=== PATIENT | male | born 1960 | race Caucasian/White ===

== ENCOUNTER 2020-08-12 08:41 | Outpatient (CLI) | payer OTHER, SELFPAY ==
[2020-08-12 09:59] LABS: Cholesterol 185 mg/dL (0-200); HDL Direct 69 mg/dL; Triglycerides 84 mg/dL (<150)
[2020-08-12 10:10] LABS: LDL Cholesterol Direct 90 mg/dL
== END 2020-08-12 08:42 | disposition home or self-care (01) ==
LOC: ANHLAB 08:45
PROVIDERS: PCP Family Medicine; Visit Provider Physician Assistant
DX: E78.00 Pure hypercholesterolemia, unspecified (principal)
CPT/HCPCS: 36415; 80061

== ENCOUNTER → 2020-11-21 00:17 | Outpatient (CLI) | payer OTHER, SELFPAY ==
[2020-11-21 21:21] LABS: SARS-CoV-2 RNA PCR Negative
== END ==
PROVIDERS: PCP Family Medicine; Visit Provider Surgery
DX: Z01.812 Encounter for preprocedural laboratory examination (principal); Z20.822 Contact with and (suspected) exposure to COVID-19
CPT/HCPCS: C9803; U0003; U0005

== ENCOUNTER 2020-11-25 01:23 | Day surgery (SDC) | payer OTHER, SELFPAY ==
[2020-11-23 15:00] VITALS: BMI 28.7
[2020-11-25] VITALS (10 sets, daily range): BP systolic 103–141; BP diastolic 72–83; PULSE 63–74; RESP 10–20; TEMP 36.2–36.6; O2SAT 95–100
[2020-11-25] MEDS: LACTATED RINGERS 1,000 ML 30 ML IV CONT ×2 (12:05→15:00)
[2020-11-25] MEDS: ACETAMINOPHEN 500 MG TABLET 1000 MG PO (12:10)
[2020-11-25] MEDS: KETOROLAC 15 MG/ML VIAL (*BKC) IV PUSH (12:10)
[2020-11-25 12:46] LABS: Anion Gap 7 mmol/L (8-16); Blood Urea Nitrogen 17 mg/dL (9-20); Calcium 9.1 mg/dL (8.4-10.2); Carbon Dioxide 25 mmol/L (22-30); Chloride 105 mmol/L (98-107); Estimated CRCL calculation 87 ml/min; Estimated Glomerular Filt Rate > 60; Glucose 103 mg/dL (65-110); Potassium 4.2 mmol/L (3.4-5.0); Sodium 137 mmol/L (137-145)
--- NOTE | 2020-11-25 13:34 | WPDANESEPPF ---
Anes - Initial Pre Proc Eval Procedure: Operation Date: 11/25/20 13:15 Proposed Procedures p Rectal Exam Under Anesthesia, Possible Anal Fistulotomy - Alexander Fagan DO Date/Time: 11/25/20 13:34 Surgeon: Alexander Fagan DO Pre Op Diagnosis: hortencia-rectal abscess Patient Data Age: 60 Gender: M Height: 1.78 m Weight: 93 kg Last Vital Signs Temp 36.6 C 11/25/20 11:41 Pulse 74 11/25/20 11:41 Resp 18 11/25/20 11:41 BP 141/83 H 11/25/20 11:41 Pulse Ox 97 11/25/20 11:41 Allergies Allergy/AdvReac Type Severity Reaction Status Date / Time No Known Allergies Allergy Verified 11/25/20 12:18 Home Medications Medication Instructions Recorded Confirmed Type fluticasone propionate 50 1 spray NASAL DAILY #18.2 ml 08/13/20 11/25/20 Rx mcg/actuation nasal spray,suspension lisinopril 20 1 tablet PO DAILY #90 tablet 08/13/20 11/25/20 Rx mg-hydrochlorothiazide 12.5 mg tablet alprazolam 0.25 mg PO DAILY 11/23/20 11/25/20 History Laboratory Tests 11/25/20 12:08 Sodium 137 mmol/L mmol/L (137-145) Potassium 4.2 mmol/L mmol/L (3.4-5.0) Chloride 105 mmol/L mmol/L (98-107) Carbon Dioxide 25 mmol/L mmol/L (22-30) Anion Gap 7 mmol/L L mmol/L (8-16) BUN 17 mg/dL mg/dL (9-20) Creatinine 0.80 mg/dL mg/dL (0.7-1.3) Estim Creat Clear Calc 87 ml/min ml/min Estimated GFR > 60 (59 - ) Glucose 103 mg/dL mg/dL (65-110) Calcium 9.1 mg/dL mg/dL (8.4-10.2) Patient hx anesthesia problems: none Family hx anesthesia problems: none PMFSH Past Medical History Medical History Benign essential HTN KHADRA (generalized anxiety disorder) Perforation of colon as colonoscopy complication Peritonitis Prostate CA Surgical History Surgical History History of appendectomy History of colon resection Family History Family History Other No pertinent family history Social History Social History Social History: Smoking status: Never smoker Smokeless tobacco user: chewing tobacco Second hand tobacco smoke exposure: No Alcohol intake: current Drinks per week: 3 Alcohol use details: socially Substance use: never Substance use type: does not use Living arrangements: with family Additional occupation/education comments: Construction Gender identity (if verbalized by the patient): Male Spiritual care concerns: No Anes - Eval Final PreProcedure Day of Procedure 11/25/20 13:34 Patient weight: overweight Heart: regular rate and rhythm Lungs: clear to auscultation Airway: Mallampati scale class II Neurological: alert and oriented Last oral intake: >/= 8 hours ASA classification: III Emergent: no Anesthetic plan: proceed Anesthesia type and monitoring: general LMA and standard monitoring Informed Consent: The patient's anesthetic plan and its attendant risks and benefits were discussed with the patient/family/POA. Questions were solicited and answers provided to the satisfaction of the patient/family/POA.
--- NOTE | 2020-11-25 13:38 | WPDHPUPDATE1 ---
History and Physical Update Update Date/Time: 11/25/20 13:38 History and Physical has been reviewed, including an updated exam of the patient. There are NO changes in the patient's condition. Risks, benefits, and alternatives have been discussed and questions answered. Patient agrees to proceed with procedure.
--- NOTE | 2020-11-25 13:38 | PM.IMHP ---
H&P: HPI History of Present Illness Date/Time: 11/25/20 13:38 Chief Complaint: anal fistula Narrative: this is a 60 yo man who presents with an anal fistula. He presents for rectal EUA with possible fistulotomy. Review of Systems Review of Systems: All systems reviewed & are unremarkable except as noted in HPI and below Constitutional: Constitutional: Denies chills, Denies fever(s), Denies headache(s) and Denies weight loss Eyes: Eyes: Denies change in vision ENT: Denies dizziness, Denies headache(s), Denies neck mass and Denies throat swelling Cardiovascular: Cardiovascular: Denies chest pain, Denies lightheadedness and Denies dyspnea Respiratory: Respiratory: Denies cough, Denies dyspnea and Denies wheezing Gastrointestinal: Gastrointestinal: Denies abdominal pain, Denies change in bowel habits, Denies nausea and Denies vomiting Genitourinary: Genitourinary: Denies hematuria and Denies dysuria Musculoskeletal: Musculoskeletal: Reports as per HPI Integumentary/Breasts: Skin/Breast: Reports as per HPI Neurologic: Denies dizziness and Denies headache(s) Allergic/Immunologic: Allergic/Immunologic: Denies throat swelling and Denies wheezing PMFSH Past Medical History Medical History Benign essential HTN KHADRA (generalized anxiety disorder) Perforation of colon as colonoscopy complication Peritonitis Prostate CA Surgical History Surgical History History of appendectomy History of colon resection Family History Family History Other No pertinent family history Social History Social History Social History: Smoking status: Never smoker Smokeless tobacco user: chewing tobacco Second hand tobacco smoke exposure: No Alcohol intake: current Drinks per week: 3 Alcohol use details: socially Substance use: never Substance use type: does not use Living arrangements: with family Additional occupation/education comments: Construction Gender identity (if verbalized by the patient): Male Spiritual care concerns: No Meds Home Medications and Allergies Home Medications Medication Instructions Recorded Confirmed Type fluticasone propionate 50 1 spray NASAL DAILY #18.2 ml 08/13/20 11/25/20 Rx mcg/actuation nasal spray,suspension lisinopril 20 1 tablet PO DAILY #90 tablet 08/13/20 11/25/20 Rx mg-hydrochlorothiazide 12.5 mg tablet alprazolam 0.25 mg PO DAILY 11/23/20 11/25/20 History Allergies Allergy/AdvReac Type Severity Reaction Status Date / Time No Known Allergies Allergy Verified 11/25/20 12:18 Vital Signs Vital Signs - 24 hr 11/25/20 11:41 Temperature 36.6 C Pulse Rate 74 Respiratory Rate 18 Blood Pressure 141/83 H Pulse Oximetry 97 Exam Const: General: no acute distress and alert Orientation/consciousness: patient oriented x3 HENMT: Head: normocephalic and atraumatic Ears: hearing grossly normal bilaterally General nose exam: Normal nares present Mouth: Yes Normal oral and palatal mucosa present Eyes: Periorbital: periorbital findings normal Sclera: sclerae normal EOM: EOMs intact bilaterally Neck: Neck: normal visual inspection, no lymphadenopathy and trachea midline Chest: Chest palpation & inspection: normal inspection of the chest Resp: Effort & Inspection: normal respiratory effort Auscultation: clear to auscultation bilaterally Cardio: Jugular venous distension: no JVD Rate: regular rate Rhythm: regular rhythm Heart sounds: S1 normal heart sound present and S2 normal heart sound present Peripheral pulses: Peripheral pulses 2+ throughout GI: Inspection: normal to inspection GI Palp: Yes Soft to palpation, No Tenderness to palpation present (GI), No Guarding due to palpation pr
[2020-11-25] MEDS: ceFAZolin 2 GM/D5W 50 ML 2 GM/50 ML BAG IVPB (13:41)
--- NOTE | 2020-11-25 14:48 | W.PM.PROC2 ---
Procedure Note - Detailed Date of Procedure 11/25/20 Pre-op Diagnosis Anal fistula, perirectal abscess Post-op Diagnosis same (Trans-sphincteric anal fistula) Procedure Performed 1. Rectal exam under anesthesia 2. Placement of draining Seton 3. Incision and drainage of perirectal abscess Surgeon Alexander Fagan, Anesthesia general and local (Exparel) Indications This is a 60-year-old man who presented with recurrent perirectal abscesses over the past 3 months. He initially presented as a lump in the perianal region that eventually opened and drained on its own. He was placed on antibiotics and drainage seemed to improve. About a month later he had a recurrent episode and was found to have a chronic wound opening in the same location. Discussions were made with the patient that he likely had an anal fistula. Discussions were made with the patient about treatment options and decision was made to proceed with rectal exam under anesthesia with possible anal fistulotomy. Findings Rectal exam under anesthesia was performed. On perianal exam, there appeared to be a chronic small punctate wound opening in the right anterior location about 4 cm from the anal verge. A Hill-Delgado anoscope was inserted and the anal rectal canal was carefully inspected. There appeared to be a right anterior hemorrhoid bundle that was slightly engorged but there did not appear to be any signs of bleeding or thrombosis. No other internal abnormalities were noted initially. The lacrimal probes were then used to carefully probed the wound opening on the skin surface and this was found to be a deep transsphincteric anal fistula that entered into the anal canal in the anterior midline. Due to the significant amount of sphincter muscle fibers that this was involving, I did not feel comfortable performing a sphincterotomy. A draining seton was placed with a red vessel loop. I also probed the wound opening on the perianal skin and this appeared to track anteriorly towards the base of the scrotum as well. I opened the abscess tracked about 2 cm to allow for better drainage. No specimens were obtained for pathology. Description of Procedure Procedure as well as risks, benefits, and alternatives were discussed with the patient. Written consent was obtained and placed in chart prior to procedure. Patient was brought back to surgical suite. He was placed supine on operating table. Time-out was done to confirm patient and procedure. General anesthesia was then administered by the Anesthesia Department. He was repositioned into lithotomy position and stirrups. His perirectal area was prepped and draped in sterile fashion using Betadine prep. A careful perianal exam was initially performed followed by digital rectal exam. The wound opening was identified in the right anterior perianal skin about 4 cm from the anal verge. A Hill-Delgado anoscope was inserted in the anal rectal canal was carefully inspected. The lacrimal probes were then advanced into the wound opening on the skin and the location of tracking was carefully identified. The probe was tracked all the way down towards the anterior midline anal canal. The internal opening was identified within the anterior midline. This appeared to encompass a significant amount of the patient's sphincter muscle fibers. Sphincterotomy was not performed, and decision was made to place a draining seton instead. An 0 silk tie was tied around the lacrimal probe tip and this was then brought through the fistula tract. I then tied the red vessel loop to the 0 silk suture and brought the low vessel loop back through the fistula tract. The vessel loop was then tied in place with several 0 silk ties and this was kept loose to allow for continued drainage. I then also probed the wound for any other tracking and this also appeared to track anteriorly underneath the skin towards the base of the scrotum. This tracked about 4-5 cm anteriorly, but
--- NOTE | 2020-11-25 16:43 | SUR.PHASEII ---
[id number] - dr. lang in room talking with pt and pt's family at length in regards to procedure.
== END 2020-11-25 16:18 | disposition home or self-care (01) ==
PROVIDERS: Anesthesiology; PCP Family Medicine; Visit Provider Surgery
PROC: (CPT 46060; principal; 2020-11-25 13:15)
DX: K61.1 Rectal abscess (principal); I10 Essential (primary) hypertension; F41.1 Generalized anxiety disorder; Z85.46 Personal history of malignant neoplasm of prostate; F17.220 Nicotine dependence, chewing tobacco, uncomplicated
CPT/HCPCS: 46060; 36415; 80048; A9270; C9290; C9803; J0690; J1100; J1885; J2250; J2370; J2405; J2704; J3010; J7120; U0003; U0005

== ENCOUNTER 2024-06-10 10:22 | Outpatient (CLI) | payer OTHER, SELFPAY ==
--- NOTE | ~2024-06-10 | XR_ITS ---
Clinical Indication: Cough PA and lateral views of the chest: Comparison: None Findings: The lungs are clear, without evidence of focal consolidation or pleural effusion. Cardiome diastinal silhouette is within normal limits. Bones and soft tissues are unremarkable. Impression: Normal chest. Reviewed, dictated and finalized at location . ATRICIAN/MEDICAL DOCTOR Impression: Normal chest.
--- OUTSIDE RECORDS SUMMARY | 2024-06-10 11:43 | XMS_ITS | Referral Summary ---
Author Organization [facility] Address [facility] [place] [address] Care Team Providers Care Supervisor Gluing Name Role Phone Bruna Fagan DO Unavailable [phone] Sakshi Hernandez MD Primary Care Provider Chicho Vanessa MD Unavailable [phone] Allergies No known active allergies Medications lisinopril-hydr oCHLOROthiazide (PRINZIDE,ZESTO RETIC) 20-12.5 mg per tablet Take one by mouth one time per day 30 1 8 Active fluticasone propionate (FLONASE) 50 mcg/actuation nasal spray 2 sprays as needed Active azelastine (ASTELIN) 137 mcg (0.1 %) nasal spray Administer 2 sprays into each nostril daily Use in each nostril as directed Active Active Problems Problem Noted Date Diagnosed Date IBD (inflammatory bowel disease) 02/18/2021 Anal fistula 01/26/2021 Overview (01/26/2021): Added automatically from request for surgery [id number] Diastasis of rectus abdominis 08/08/2016 Overview (09/09/2016): Diastasis recti Abnormal glucose tolerance test (GTT) 08/31/2013 Overview (07/21/2016): IMPAIRED ORAL GLUCSE DAVIN Benign hypertension 08/31/2013 Overview (07/21/2016): BENIGN HYPERTENSION Social History Tobacco Use Types Packs/Day Years Used Date Smoking Tobacco: Former Alcohol Use Standard Drinks/Week Comments Yes 0 (1 standard drink = 0.6 oz pur e alcohol) AUDIT-C Answer Date Recorded Q1: How often do you have a drink containing alcohol? 4 or more times a week 02/19/2021 Q2: How many drinks containi ng alcohol do you have on a typical day when you are drinking? 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 Gender Identity Male 01/01/2021 9:44 AM CDT Sexual Orientation Straight 01/01/2021 9: 44 AM CDT Last Filed Vital Signs Vital Sign Reading Time Taken Comments Blood Pressure 162/85 04/13/2021 11:06 AM AUTOMOTIVE TIRE WORKER Pulse 94 04/13/2021 11:06 AM AUTOMOTIVE TIRE WORKER Temperature 36.2 C (97.2 F) 04/13/2021 11:06 AM AUTOMOTIVE TIRE WORKER Respiratory Rate 24 02/19/2021 9:53 AM CDT Oxygen Saturation 97% 02/19/2021 9:53 AM CDT Inhaled Oxygen Concentration - - Weight 94.2 kg (207 lb 9.6 oz) 04/13/2021 11:06 AM AUTOMOTIVE TIRE WORKER Height 180.3 cm (5' 11 ) 02/19/2021 8:32 AM CDT Body Mass Index 28.95 02/19/2021 8:32 AM CDT Plan of Treatment Not on file Insurance [employer] S[employer]ATURE [facility] CMR Advance Directives For more information, please contact: [phone] * Full Code (Latest Code Status on File) Date Activated Date Inactivated Comments 02/19/2021 8:27 AM 02/19/2021 2:40 PM Care Teams Supervisor Gluing Relationship Specialty Start Date End Date Sakshi Hernandez MD [address] [place] [address] PCP - General Family Medicine 12/03/20 Bruna Fagan DO [address] [place] [address] Referring Physician Surgery 12/01/20 Chicho Vanessa MD [phone] [place] [address] Surgeon Colon and Rectal Surgery 01/01/21"
--- OUTSIDE RECORDS SUMMARY | 2024-06-10 11:43 | XMS_ITS | Clinical Summary ---
Author Organization [facility] Address [facility] license of [facility] [place] [address] Care Team Providers Care Rn Care Transition Name Role Phone Bruna Fagan DO Unavailable [phone] Sakshi Hernandez MD Primary Care Provider Chicho Vanessa MD Unavailable [phone] Allergies No known active allergies Medications [...] (01/26/2021): Added automatically from request for surgery [id number] Diastasis of rectus abdominis 08/08/2016 Overview (09/09/2016): Diastasis recti Abnormal glucose tolerance test (GTT) 08/31/2013 Overview (07/21/2016): IMPAIRED ORAL GLUCSE DAVIN Benign hypertension 08/31/2013 Overview (07/21/2016): BENIGN HYPERTENSION Surgical History Surgery Date Site/Laterality Comments COLONOSCOPY Medical History Medical History Date Comments Hx Other Medical e.d. 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 Gender Identity Male 01/01/2021 9:44 AM CDT Sexual Orientation Straight 01/01/2021 9: 44 AM CDT Obstetrics History Last Filed Vital Signs Vital Sign Reading Time Taken Comments Blood Pressure 162/85 04/13/2021 11:06 AM GAS APPLIANCE SERVICER Pulse 94 04/13/2021 11:06 AM GAS APPLIANCE SERVICER Temperature 36.2 C (97.2 F) 04/13/2021 11:06 AM GAS APPLIANCE SERVICER Respiratory Rate 24 02/19/2021 9:53 AM CDT Oxygen Saturation 97% 02/19/2021 9:53 AM CDT Inhaled Oxygen Concentration - - Weight 94.2 kg (207 lb 9.6 oz) 04/13/2021 11:06 AM GAS APPLIANCE SERVICER Height 180.3 cm (5' 11 ) 02/19/2021 8:32 AM CDT Body Mass Index 28.95 02/19/2021 8:32 AM CDT Plan of Treatment Not on file Insurance [employer] SIGNATURE [facility] [place] [id number] [facility] Advance Directives For more information, please contact: [phone] * Full Code (Latest Code Status on File) Date Activated Date Inactivated Comments 02/19/2021 8:27 AM 02/19/2021 2:40 PM Care Teams Rn Care Transition Relationship Specialty Start Date End Date Sakshi Hernandez MD [address] [place] [address] PCP - General Family Medicine 12/03/20 Bruna Fagan DO [address] [place] [address] Referring Physician Surgery 12/01/20 Chicho Vanessa MD [phone] [place] [address] Surgeon Colon and Rectal Surgery 01/01/21
--- OUTSIDE RECORDS SUMMARY | 2024-06-10 11:44 | XMS_ITS | Clinical Summary ---
Author Organization [facility] Address [address] [place] [address] Phone Care Team Providers Care Disulfurizer Tender Name Role Phone Wili Ling MD Primary Care Provider [phone] Allergies No known active allergies Medications lisinopril-hydroc hlorothiazide (ZESTORETIC) 20-12.5 mg tablet Take 1 Tab by mouth daily. Active fluticasone (FLONASE) 50 mcg/spray [place], Suspension Administer 2 Sprays in each nostril daily. Active tobramycin-dexame thasone (TOBRADEX) 0.3-0.1 % suspension 1 Drop every 4 hours. Active Lactobacillis acidophillis/para casei, bifidobacterium, Streptococcus thermophilus (DEVON-Q) 8 billion cell capsule Take 1 Cap by mouth daily. Active vitamin B complex-vitamin C-folic acid (NEPHROCAP) 1 mg Capsule Take 1 Cap by mouth daily. Active Active Problems Problem Noted Date Diagnosed Date Colon polyps 01/20/2011 Ulcerative colitis 01/20/2011 Colitis 01/20/2011 Gastrointestinal problem Overview (03/01/2011): Procedures EGD, 01/20/11, [facility] Colonoscopy, 01/20/11, [facility] Family History Medical History Relation Name Comments Colon Cancer Brother Colon Polyps Brother Relation Name Status Comments Brother Social History Tobacco Use Types Packs/Day Years Used Date Smoking Tobacco: Never Smokeless Tobacco: Never Alcohol Use Standard Drinks/Week Comments Yes 0 (1 standard drink = 0.6 oz pur e alcohol) occ Sex and Gender Information Value Date Recorded Sex Assigned at Not on file Legal Sex Male 4:38 AM ASBESTOS SURVEYOR Gender Identity Not on file Sexual Orientation Not on file Last Filed Vital Signs Vital Sign Reading Time Taken Comments Blood Pressure 99/70 04/30/2014 9:14 AM ASBESTOS SURVEYOR Pulse 72 03/18/2014 2:58 PM ASBESTOS SURVEYOR Temperature 36.1 C (97 F) 04/30/2014 8:47 AM ASBESTOS SURVEYOR Respiratory Rate 16 04/30/2014 9:14 AM ASBESTOS SURVEYOR Oxygen Saturation 96% 04/30/2014 9:14 AM ASBESTOS SURVEYOR Inhaled Oxygen Concentration - - Weight 88.1 kg (194 lb 3.2 oz) 04/30/2014 7:27 A M ASBESTOS SURVEYOR Height 180.3 cm (5' 11 ) 04/30/2014 7:27 AM ASBESTOS SURVEYOR Body Mass Index 27.09 04/30/2014 7:27 AM ASBESTOS SURVEYOR Plan of Treatment Health Maintenance Due Date Last Done Comments DTAP/TDAP/TD VACCINES (1 - Tdap) 07/19/1978 FIT-DNA Q 3 years 07/19/2004 FIT/FOBT Q 1 year 07/19/2004 Flex Sig/CT Colonography Q 5 years 07/19/2004 ZOSTER VACCINE (1 of 2) 07/19/2009 COLORECTAL SCREENING 10/28/2014 04/30/2014, 09/07/2011, 09/07/2011 Colorectal Cancer Screening 10/28/2014 INFLUENZA VACCINE (#1) 2023 RSV VACCINE (60+ or ) (1 - 1-dose 75+ series) 07/19/2034 Procedures Procedure Name Priority Date/Time Associated Diagnosis Comments ENDOSCOPY, COLON, SCREENING Routine 09/07/2011 from Last 3 Months or Most Recently Relevant to Health Maintenance Results * (ABNORMAL) ENDOSCOPY, COLON, SCREENING (09/07/2011) us Brody Meyers MD GI PROCEDURE ORDERABLES [facility] from Last 3 Months or Most Recently Relevant to Health Maintenance Advance Directives For more information, please contact: [phone] * Full Code (Latest Code Status on File) Date Activated Date Inactivated Comments 04/30/2014 7:26 AM 04/30/2014 11:32 AM Care Teams Disulfurizer Tender Relationship Specialty Start Date End Date Wili Ling MD [address] [facility] [address] [place] [address] PCP - General Interventional Cardiology 02/15/11
--- OUTSIDE RECORDS SUMMARY | 2024-06-10 11:44 | XMS_ITS | Referral Summary ---
Author Organization [facility] Address [address] [address] Care Team Providers Care Washing Machine Loader And Puller Name Role Phone Wili Ling MD Primary Care Provider [phone] Source Comments [facility],non-owned Affiliates and Associated Physician Practices is amultiple site organization consisting of ambulatory clinics and hospital sitesin [place], [place], [place] and [place]. This disclosure is being madepursuant to the Care Everywhere program and may not contain all information available regarding this patient. Last updated 18.[facility] Allergies No known active allergies Medications * Be aware that medications may not be up to date on this document. Alwaysverify current medications with the patient. Medication Sig Dispensed Refills Start Date End Date Status oxycodone-acetaminop hen (PERCOCET) 7.5-325 MG tablet Take 1 Tab by mouth every 6 hours as needed for Pain. 30 Tab 0 05/23/2011 Active naproxen (NAPROSYN) 500 MG tablet Take 1 Tab by mouth 2 times daily as needed for Pain. 20 Tab 0 05/23/2011 Active lisinopril-hydroCHLO ROthiazide (PRINZIDE; ZESTORETIC) 20-12.5 MG tablet Take 1 tablet by mouth Active fluticasone propionate (FLONASE) 50 MCG/ACT nasal spray 2 sprays Active famotidine (PEPCID) 20 MG tablet Take 1 tablet by mouth 3 times daily as needed for Heartburn 90 tablet 01/23/2018 Active Active Problems Problem Noted Date Diagnosed Date Gastrointestinal problem 01/23/2018 Overview (01/23/2018): Overview: Formatting of this note may be different from the original. Procedures EGD, 01/20/11, [facility] Colonoscopy, 01/20/11, [facility] Colitis 01/20/2011 Colon polyps 01/20/2011 Ulcerative colitis 01/20/2011 Immunizations Name Administration Dates Next Due TDAP (7yrs+) 05/06/2020 Social History Tobacco Use Types Packs/Day Years Used Date Smoking Tobacco: Never Sex and Gender Information Value Date Recorded Sex Assigned at Not on file Gender Identity Not on file Sexual Orientation Not on file Last Filed Vital Signs Vital Sign Reading Time Taken Comments Blood Pressure 114/70 01/23/2018 2:47 PM CDT Pulse 93 01/23/2018 2:47 PM CDT Temperature 36.3 C (97.4 F) 05/23/2011 8:18 AM ATTENDANT SALES Respiratory Rate 16 05/23/2011 11:35 AM ATTENDANT SALES Oxygen Saturation 97% 05/23/2011 11:35 AM ATTENDANT SALES Inhaled Oxygen Concentration - - Weight 90.3 kg (199 lb) 01/23/2018 2:47 PM CDT Height 177.8 cm (5' 10 ) 01/23/2018 2:47 PM CDT Body Mass Index 28.55 01/23/2018 2:47 PM CDT Plan of Treatment Not on file Care Teams Washing Machine Loader And Puller Relationship Specialty Start Date End Date Wili Ling MD [address] [place] [address] PCP - General 05/23/11
--- OUTSIDE RECORDS SUMMARY | 2024-06-10 11:44 | XMS_ITS | Clinical Summary ---
Author Organization [facility] Address [address] [place] [address] Care Team Providers Care Coal Digger Name Role Phone Wili Ling MD Primary Care Provider [phone] Source Comments [facility],non-owned Affiliates and Associated Physician Practices is amultiple site organization consisting of ambulatory clinics and hospital sitesin [place], [place], [place] and [place]. This disclosure is being madepursuant to the Care Everywhere program and may not contain all information available regarding this patient. Last updated 18.[facility] Allergies No known active allergies Medications * [...] Administration Dates Next Due TDAP (7yrs+) 05/06/2020 Family History Medical History Relation Name Comments Diabetes Mother Relation Name Status Comments Mother Social History Tobacco Use Types Packs/Day Years [...] 36.3 C (97.4 F) 05/23/2011 8:18 AM SOFTWARE VERIFICATION ENGINEER Respiratory Rate 16 05/23/2011 11:35 AM SOFTWARE VERIFICATION ENGINEER Oxygen Saturation 97% 05/23/2011 11:35 AM SOFTWARE VERIFICATION ENGINEER Inhaled Oxygen Concentration - - Weight 90.3 kg (199 lb) 01/23/2018 2:47 PM CDT Height 177.8 cm (5' 10 ) 01/23/2018 2:47 PM CDT Body Mass Index 28.55 01/23/2018 2:47 PM CDT Plan of Treatment Health Maintenance Due Date Last Done Comments COLOGUARD (AGES 45-75) - COL ON CA SCREENING 1959 COLON MONITORING 1959 COLONOSCOPY - COLON CA SCREENING 1959 CT COLONOGRAPHY - COLON CA SCREENING 1959 Colorectal Cancer Screening 1959 FIT - COLON CA SCREENING 1959 FLEX SIG - COLON CA SCREENING 1959 LIPID TESTING 1959 HIV SCREENING 07/19/1974 HEPATITIS C SCREENING 07/15/1977 PNEUMOCOCCAL VACCINE 50+ (1 of 1 - PCV) 07/19/2009 ZOSTER VACCINE (1 of 2) 07/19/2009 COVID-19 VACCINE ( - 2023-2 5 season) 2023 INFLUENZA VACCINE (#1) 2023 DEPRESSION SCREENING 04/17/2024 DTAP/TDAP/TD VACCINES (2 - T d or Tdap) 05/06/2030 05/06/2020 Respiratory Syncytial Virus (RSV) Vaccine Pt: or over 60 yrs (1 - 1-dose 75+ series) 07/19/2034 HEPATITIS B VACCINE Aged Out No longe r eligible based on patient's age to complete this topic HIB VACCINE Aged Out No longer eligi ble based on patient's age to complete this topic HPV VACCINE Aged Out No longer eligi ble based on patient's age to complete this topic MENINGOCOCCAL (Group B) VACCINE Aged Out No longer eligible based on patient's age to complete this topic MENINGOCOCCAL VACCINE Aged Out No douglas tamara eligible based on patient's age to complete this topic PNEUMOCOCCAL VACCINE Aged Out No long er eligible based on patient's age to complete this topic Care Teams Coal Digger Relationship Specialty Start Date End Date Wili Ling MD [address] [place] [address] PCP - General 05/23/11
--- OUTSIDE RECORDS SUMMARY | 2024-06-10 11:44 | XMS_ITS | Patient Health Summary ---
Author Organization [facility] [address] Address [address] [place] [address] Care Team Providers Care Real Estate Office Supervisor Name Role Phone Wili Ling MD Primary Care Provider [phone] Note from [facility],non-owned Affiliates and Associated Physician Practices is amultiple site organization consisting of ambulatory clinics and hospital sitesin [place], [place], [place] and [place]. This disclosure is being madepursuant to the Care Everywhere program and may not contain all information available regarding this patient. Last updated 18.[facility] [address] Allergies No known active allergies Medications * Be aware that medications may not be up to date on this document. Alwaysverify current medications with the patient. * oxycodone-acetaminophen (PERCOCET) 7.5-325 MG tablet(Started 05/23/2011) Take 1 Tab by mouth every 6 hours as needed for Pain. * naproxen (NAPROSYN) 500 MG tablet(Started 05/23/2011) Take 1 Tab by mouth 2 times daily as needed for Pain. * lisinopril-hydroCHLOROthiazide (PRINZIDE; ZESTORETIC) 20-12.5 MG tablet Take 1 tablet by mouth * fluticasone propionate (FLONASE) 50 MCG/ACT nasal spray 2 sprays * famotidine (PEPCID) 20 MG tablet(Started 01/23/2018) Take 1 tablet by mouth 3 times daily as needed for Heartburn Active Problems Problem Noted Date Diagnosed Date Gastrointestinal problem 01/23/2018 Colitis 01/20/2011 Colon polyps 01/20/2011 Ulcerative colitis 01/20/2011 Immunizations * TDAP (7yrs+)(Given 05/06/2020) Social History Tobacco Use Types Packs/Day Years [...] 36.3 C (97.4 F) 05/23/2011 8:18 AM PIGMENT PUMPER Respiratory Rate 16 05/23/2011 11:35 AM PIGMENT PUMPER Oxygen Saturation 97% 05/23/2011 11:35 AM PIGMENT PUMPER Inhaled Oxygen Concentration - - Weight 90.3 kg (199 lb) 01/23/2018 2:47 PM CDT Height 177.8 cm (5' 10 ) 01/23/2018 2:47 PM CDT Body Mass Index 28.55 01/23/2018 2:47 PM CDT Procedures * CBC W AUTO DIFFERENTIAL(Performed 05/23/2011) * COMPREHENSIVE METABOLIC PANEL(Performed 05/23/2011) * URINALYSIS REFLEX TO MICROSCOPIC NO CULTURE(Performed 05/23/2011) * CT ABDOMEN PELVIS WO CONTRAST(Performed 05/23/2011) Performed for Back pain, Right flank pain Results * (ABNORMAL) CBC W AUTO DIFFERENTIAL (05/23/2011 10:00 AM PIGMENT PUMPER) WBC 4.5 4.2 - 10.2 K/CUMM [facility] RBC 4.22 4.10 - 5.70 M/CUMM [facility] Hemoglobin 13.4 12.6 - 17.4 gm/dl [facility] Hematocrit 38.5 37 - 52 % [facility] MCV 91.2 80 - 99 fl [facility] MCH 31.8 27.5 - 33.1 pg [facility] MCHC 34.8 32 - 36 gm/dl [facility] RDW 12.5 11.5 - 14.5 % [facility] Platelet Count 183 150 - 400 K/CUMM [facility] Granulocytes % 50.9 45 - 73 % [facility] Lymphocytes % 28.6 22 - 41 % [facility] Monocytes % 8.9 2 - 13 % [facility] Eosinophils % 11.4(H) 0 - 6 % [facility] Basophils % 0.2 0 - 2 % [facility] Granulocytes Absolute 2.3 1.7 - 7.7 [facility] Lymphocytes Absolute 1.3 1.0 - 3.0 [facility] Monocytes Absolute 0.4 0.2 - 1.0 [facility] Eosinophils Absolute 0.5(H) 0.0 - 0.4 [facility] Basophils Absolute 0.0 0.0 - 0.1 [facility] Comment Manual Diff Automated Diff Performed [facility] Blood specimen (specimen) BLOOD SPECIMEN / Unknown 05/23/2011 10:00 AM PIGMENT PUMPER 05/23/2011 10:10 AM PIGMENT PUMPER Ming Pacheco MD LAB - HEMATOL OGY ORDERABLES [facility] [address] [place] [address] * (ABNORMAL) COMPREHENSIVE METABOLIC PANEL (05/23/2011 10:00 AM PIGMENT PUMPER) Glucose 103 70 - 110 mg/dL [facility] BUN 17 7.0 - 21.0 mg/dL [facility] Creatinine 0.59 0.5 - 1.3 mg/dL [facility] BUN/Creatinine Ratio 28.8 [facility] Sodium 139 136 - 145 mmol/L [facility] Potassium 4.0 3.5 - 5.1 mmol/L [facility] Chloride 106 98 - 107 mmol/L [facility] CO2 25 22.0 - 30.0 mmol/L [facility] Anion Gap 8 [facility] Calcium 8.4(L) 8.5 - 10.1 mg/dL [facility] Alkaline Phosphatase 50 38 - 126 U/L [facility] ALT 25 12.0 - 78.0 U/L [facility] AST 19 5.0 - 40 U/L [facility] Protein Total 6.8 6.4 - 8.2 gm/dl [facility] Albumin 3.6 3.4 - 5.0 gm/dl [facility] Bilirubin Total 0.7 0.2 - 1.0 mg/dL [facility] eGFR by MDRD >60 SEE BELOW mL/min/1.7 3 m2 [facility] Comment: >60 Normal Chronic Disease <60 Renal Failure <15 Blood specimen (specimen) BLOOD SPECIMEN / Unknown 05/23/2011 10:00 AM PIGMENT PUMPER 05/23/2011 10:10 AM PIGMENT PUMPER Ming Pacheco MD LAB - PHOTOENGRAVER ORDERABLES Performing Organization Address [facility] de Phone Number [facility] [address] [place] [address] * URINALYSIS ROUTINE AUTO (05/23/2011 9:50 AM PIGMENT PUMPER) Source Clean Catch [facility] Color UA Yellow [facility] Character UA Clear [facility] Specific [place] UA 1.025 1.002 - 1.030 [facility] pH UA 5.5 5.0 - 8.0 [facility] Protein UA NEGATIVE NEG [facility] Blood UA NEGATIVE NEG [facility] Leukocyte UA NEGATIVE NEG [facility] Nitrite UA NEGATIVE NEG [facility] Glucose UA NEGATIVE NEG [facility] Ketone UA NEGATIVE NEG [facility] Bilirubin UA NEGATIVE NEG [facility] Urobilinogen UA 0.2 0.1 - 1.0 EU/dl [facility] Urine specimen (specimen) URINE SPECIMEN OBTAINED BY CLEAN CATCH PROCEDURE / Unknown 05/23/2011 9:50 AM PIGMENT PUMPER 05/23/2011 10:10 AM PIGMENT PUMPER Ming Pacheco MD LAB - URINALY SIS ORDERABLES Performing Organization Address [facility] de Phone Number [facility] [address] [place] [phone] * CT STONE PROTOCOL= (05/23/2011 8:45 AM PIGMENT PUMPER) Anatomical Region Laterality Modality Abdomen, Pelvis Computed Tomogra phy 05/23/2011 8:57 AM PIGMENT PUMPER Impressions 05/23/2011 8:57 AM PIGMENT PUMPER No renal calculi or obstructive uropathy. Mild prostatic enlargement. Small fat containing inguinal hernias. Colonic diverticulosis without evidence of diverticulitis. Narrative 05/23/2011 8:[address] abdomen and pelvis without contrast HISTORY: Back pain radiating to the abdomen which began yesterday. FINDINGS: A stone protocol CT was obtained. The kidneys appear unremarkable. There are no stones. There is no evidence of hydronephrosis. There are no ureteral calculi. The urinary bladder is normal in appearance. The liver, spleen, gallbladder, pancreas, and adrenal glands appear normal. There are scattered colonic diverticula without evidence of diverticulitis. There is no bowel obstruction or inflammation. The appendix is not clearly identified, but there are no associated inflammatory changes in the right lower quadrant. Views of the pelvis show that the prostate gland is mildly enlarged and contains dystrophic calcifications. There are numerous phleboliths in the pelvis and scrotum. There is prolapse of fat through each internal inguinal ring. There are no abnormal masses or fluid collections. Degenerative changes are noted at L4-L5 and L5-S1. Procedure Note Aoy Hector MD - 05/23/2011 CT abdomen and pelvis without contrast HISTORY: Back pain radiating to the abdomen which began yesterday. FINDINGS: A stone protocol CT was obtained. The kidneys appear unremarkable. There are no stones. There is no evidence of hydronephrosis. There are no ureteral calculi. The urinary bladder is normal in appearance. The liver, spleen, gallbladder, pancreas, and adrenal glands appear normal. There are scattered colonic diverticula without evidence of diverticulitis. There is no bowel obstruction or inflammation. The appendix is not clearly identified, but there are no associated inflammatory changes in the right lower quadrant. Views of the pelvis show that the prostate gland is mildly enlarged and contains dystrophic calcifications. There are numerous phleboliths in the pelvis and scrotum. There is prolapse of fat through each internal inguinal ring. There are no abnormal masses or fluid collections. Degenerative changes are noted at L4-L5 and L5-S1. IMPRESSION No renal calculi or obstructive uropathy. Mild prostatic enlargement. Small fat containing inguinal hernias. Colonic diverticulosis without evidence of diverticulitis. Ming Pacheco MD CT ORDERABLES Care Teams Real Estate Office Supervisor Relationship Specialty Start Date End Date Wili Ling MD [address] [place] [address] PCP - General 05/23/11
== END 2024-06-10 10:23 | disposition home or self-care (01) ==
PROVIDERS: PCP Family Medicine; Visit Provider Student in an Organized Health Care Education/Training Program
DX: R05.9 Cough, unspecified (principal)
CPT/HCPCS: 71046